=== PATIENT | male | born 1960 | race Caucasian/White ===

== ENCOUNTER 2018-04-14 17:28 | Inpatient (IN) | payer BC, OTHER ==
[~2018-04-14] VITALS: Ht 180.3 cm; Wt 93.0 kg
--- NOTE | 2018-04-14 17:53 | NUR ---
WILI COMPLETED. SBAR REPORT TO JESSIE RN, PT HAD MRSA-NARES ORDERED SENT. PT TO [facility] VIA W/C.
[2018-04-14] MEDS ORDERED: DIVA500T4 PO (17:56)
[2018-04-14] MEDS ORDERED: CALCIUM CARBONATE (17:56)
[2018-04-14] MEDS ORDERED: CLON0.1T PO (17:56)
[2018-04-14] MEDS ORDERED: AMLO5TAB4 PO (17:56)
[2018-04-14] MEDS ORDERED: VITAMIN D (17:56)
[2018-04-14] MEDS ORDERED: CLONAZEPAM 0.5 MG TABLET PO SCH (18:30)
[2018-04-14] MEDS ORDERED: MAG HYDROX/AL HYDROX/SIMETH 30 ML LIQUID UDC PO PRN (18:30)
[2018-04-14] MEDS ORDERED: MAGNESIUM HYDROXIDE 30 ML LIQUID UDC PO PRN (18:30)
[2018-04-14 18:33] VITALS: BP 122/71
[2018-04-14] MEDS ORDERED: CLONIDINE HCL 0.1 MG TABLET PO PRN (19:15)
[2018-04-14] MEDS: ZOLPIDEM 5 MG TABLET PO PRN (20:13)
[2018-04-14] MEDS: ACETAMINOPHEN 325 MG TABLET PO PRN (21:11)
[2018-04-14 21:36] VITALS: BP 129/67
--- NOTE | 2018-04-14 22:17 | NUR ---
Received pt to care, pt is pleasant walking around the unit, cooperative, A & O x 3, pt was offered a snack, pt accepted and ate 100%, pt showered, pt asked for something to help him sleep. Pt also req tylenol. Pt was given ambien 5mg and tylenol 650mg. At this time pt is asleep in his bed.
--- NOTE | 2018-04-15 06:26 | NUR ---
Pt is labile, confused, delusional stating that he is "queen darlyn thompson", pt is non-compliant, aggressive in tone and body language, pt requesting to smoke but instead designer/writer offered nicotine patch but pt stated that he did not use those and told designer/writer to "get out of here". Pt was pacing around his room and the hallways most of the night. Pt is a totally different personality than when designer/writer first arrived on shift. Pt is hyperverbal, belligerent, confused, restless.
[2018-04-15 08:00] VITALS: BP 130/74
[2018-04-15] MEDS: AMLODIPINE 5 MG TABLET PO SCH (08:27)
[2018-04-15] MEDS: NICOTINE 21 MG/24HR PATCH TD SCH (08:28)
[2018-04-15] MEDS: DIVALPROEX 500 MG TABLET.DR PO SCH ×3 (10:29→17:01)
[2018-04-15 10:30] LABS: BASOPHILS % (AUTO) 0.4 % (0.0-2.0); EOSINOPHILS # (AUTO) 0.1 K/uL (0.0-0.7); EOSINOPHILS % (AUTO) 1.5 % (0.0-7.0); HEMATOCRIT 43.2 % (36.7-47.1); HEMOGLOBIN 15.1 g/dL (12.5-16.3); LYMPHOCYTES # (AUTO) 1.6 K/uL (20.0-40.0); LYMPHOCYTES % (AUTO) 18.7 % (20.5-51.5); MEAN CORPUSCULAR HGB CONC 35 g/dL (32.5-36.3); MEAN CORPUSCULAR VOLUME 91.6 fL (73.0-96.2); MONOCYTES # (AUTO) 0.6 K/uL (2.0-10.0); MONOCYTES % (AUTO) 6.9 % (0.0-11.0); NEUTROPHILS # (AUTO) 6.1 K/uL (1.8-8.9); NEUTROPHILS % (AUTO) 72.5 % (38.5-71.5); PLATELET COUNT (AUTO) 204 K/uL (152-348); RED BLOOD CELL COUNT(AUTO) 4.72 MIL/uL (4.06-5.63); WHITE BLOOD COUNT (AUTO) 8.5 K/uL (3.6-10.2)
[2018-04-15 10:44] LABS: BILIRUBIN,TOTAL 0.5 mg/dL (0.2-1.0); CREATININE 0.9 mg/dL (0.6-1.3); MAGNESIUM 1.8 mg/dL (1.8-2.4); PHOSPHOROUS 4.6 mg/dL (2.5-4.9); POTASSIUM 4.1 mmol/L (3.5-5.1); TOTAL PROTEIN, SERUM 7.8 g/dL (6.4-8.2)
[2018-04-15 11:06] LABS: THYROID STIMULATING HORMONE 0.745 mIU/mL (0.358-3.740)
[2018-04-15 15:06] VITALS: BP 117/63
[2018-04-15 20:48] VITALS: BP 121/73
[2018-04-15] MEDS: OLANZAPINE ZYDIS 5 MG TAB.RAPDIS PO SCH (21:00)
[2018-04-16 07:30] VITALS: BP 127/75
[2018-04-16] MEDS: DIVALPROEX 500 MG TABLET.DR PO SCH ×3 (08:14→16:30)
[2018-04-16] MEDS: AMLODIPINE 5 MG TABLET PO SCH (08:14)
[2018-04-16] MEDS: NICOTINE 21 MG/24HR PATCH TD SCH (08:14)
--- NOTE | 2018-04-16 12:15 | NUR ---
Initial Discharge Plan: Patient is currently homeless and it is uncertain how long he has been homeless or if he has ever used usp support. Patient does have a contact who is his daughter, Vandana [[phone]], but it is unclear what the level of relationship is between her and patient. Patient has provided consent for medical social worker to contact her. amusement park worker contacted Vandana, however was only able to leave a voicemail. As of now, discharge plan is pending. amusement park worker will continue to collaborate with patient, patient's daughter, and attending MD on a safe and proper discharge.
[2018-04-16] MEDS ORDERED: diphenhydrAMINE 50 MG/1 ML VIAL IM STA (14:36)
[2018-04-16] MEDS ORDERED: HALOPERIDOL LACTATE 5 MG/1 ML VIAL IM STA (14:36)
[2018-04-16] MEDS ORDERED: LORAZEPAM 2 MG/1 ML VIAL IM STA (14:36)
--- NOTE | 2018-04-16 14:39 | NUR ---
UR Note: highway maintenance crew worker faxed UR clinicals for patient to employment case manager Azeb [phone:[phone] / FAX: [phone]] at [facility] as UR was due today, 04/16/2018.
[2018-04-16] MEDS ORDERED: OLANZAPINE ZYDIS 5 MG TAB.RAPDIS PO ONE (15:00)
--- NOTE | 2018-04-16 16:05 | NUR ---
Pt. refused Olanzapine dose @ 1500, when ask why pt stated "I don't take that one, let me see that one." Educated pt. the importance of adhering to regimen as prescribed by MD.Pt. insisted on not taking Olanzapine.
[2018-04-16 16:45] VITALS: BP 120/72
--- NOTE | 2018-04-16 17:07 | NUR ---
Pt. + for MRSA nares. Pt. promplty isolated. Relayed results to Dr. Pate, awaiting for orders.
[2018-04-16 20:00] VITALS: BP 118/67
[2018-04-16] MEDS: MUPIROCIN 2% OINT 22 GM TUBE NS SCH (20:41)
[2018-04-16] MEDS: OLANZAPINE ZYDIS 5 MG TAB.RAPDIS PO SCH (20:54)
[2018-04-17 07:30] VITALS: BP 107/65
[2018-04-17] MEDS: NICOTINE 21 MG/24HR PATCH TD SCH (08:53)
[2018-04-17] MEDS: DIVALPROEX 500 MG TABLET.DR PO SCH ×3 (08:53→17:04)
[2018-04-17] MEDS: AMLODIPINE 5 MG TABLET PO SCH (08:54)
[2018-04-17] MEDS: MUPIROCIN 2% OINT 22 GM TUBE NS SCH ×3 (08:55→20:27)
--- NOTE | 2018-04-17 09:36 | NUR ---
UR Note: latex foam worker followed up with foster care case manager, Azeb [ph: [phone]; fax: [phone]], at [facility] who states that patient is authorized (#[id number]) for another 3 days and the next review will be on 04/19/2108.
--- NOTE | 2018-04-17 10:10 | NUR ---
Discharge Planning: licensing worker received return phone call from patient's daughter, Maria D [[phone]], who states that her and patient do not have a relationship. Maria D states that she last spoke with patient in February. Apparently patient was living with a "manager social responsibility" for 7 years who would help him and make sure he took his medication. The "manager social responsibility" June 2017 and left the patient homeless. Per Maria D, the patient "spiraled" after the of his "manager social responsibility". Maria D does not know how much the patient has in terms of income and states that she will not be involved in his care. licensing worker will continue to work on a safe and proper discharge plan for patient.
[2018-04-17 17:28] VITALS: BP 121/53
[2018-04-17] MEDS: OLANZAPINE ZYDIS 5 MG TAB.RAPDIS PO SCH ×2 (20:19→20:26)
[2018-04-17 20:42] VITALS: BP 125/68
[2018-04-18 07:30] VITALS: BP 124/72
[2018-04-18] MEDS: NICOTINE 21 MG/24HR PATCH TD SCH (08:44)
[2018-04-18] MEDS: MUPIROCIN 2% OINT 22 GM TUBE NS SCH ×2 (08:49→20:15)
[2018-04-18] MEDS: AMLODIPINE 5 MG TABLET PO SCH (08:49)
[2018-04-18] MEDS: DIVALPROEX 500 MG TABLET.DR PO SCH ×3 (08:49→16:57)
[2018-04-18 15:16] VITALS: BP 105/65
--- NOTE | 2018-04-18 15:44 | NUR ---
Activity Group Note: Patients were asked to draw a picture of Fall and to join in discussion of what Fall means to them or any memories they may have of the Fall season. Subjective: "I don't really like Fall" [Patient made this statement when asked what he likes about Fall] Objective: Patient appeared to be engaged in drawing activity and to be enjoying himself. Patient was task-oriented and focused on completion of picture. Assessment: Patient needs encouragement and support in engaging with peers. Plan: Encourage group attendance as scheduled. textile pin worker will continue to provide encouragement and support in helping patient engage with peers and group activity.
[2018-04-18] MEDS: OLANZAPINE ZYDIS 5 MG TAB.RAPDIS PO SCH (20:15)
[2018-04-18 20:30] VITALS: BP 135/78
[2018-04-19 07:30] VITALS: BP 145/84
[2018-04-19] MEDS: DIVALPROEX 500 MG TABLET.DR PO SCH ×3 (08:41→17:23)
[2018-04-19] MEDS: MUPIROCIN 2% OINT 22 GM TUBE NS SCH ×2 (08:41→20:05)
[2018-04-19] MEDS: NICOTINE 21 MG/24HR PATCH TD SCH (08:41)
[2018-04-19] MEDS: AMLODIPINE 5 MG TABLET PO SCH (08:45)
--- NOTE | 2018-04-19 10:35 | NUR ---
UR Note: welfare eligibility worker faxed patient packet for utilization review due today to Azeb [ph: [phone]; fax: [phone]], at [facility] welfare eligibility worker also followed up with phone call to Azeb and left a voicemail informing her that social group worker will be leaving office at noon today and to provide all necessary information to social group worker, Cristy [[phone]]. Authorization (#[id number]).
[2018-04-19 15:51] VITALS: BP 125/68
[2018-04-19] MEDS: OLANZAPINE ZYDIS 5 MG TAB.RAPDIS PO SCH (20:05)
[2018-04-19 20:41] VITALS: BP 110/61
--- NOTE | 2018-04-19 22:10 | NUR ---
GPS: Pt.refused his bedtime meds.earlier despite explanation of risks vs.benefits x3. Paranoid and remains delusional. Refused to listen to re-direction from staff. Observed to be standing by the water fountain and playing with the water. Staff instructed pt.to go back to his room which he did but gave staff a nasty stare down. Also made a gesture of cutting his throat with his thumb. Pt.attempts to intimidate staff. Will continue to monitor behavior for further escalation. Safety checks continues.
[2018-04-20 07:30] VITALS: BP 132/76
[2018-04-20] MEDS: AMLODIPINE 5 MG TABLET PO SCH (09:00)
[2018-04-20] MEDS: NICOTINE 21 MG/24HR PATCH TD SCH (09:00)
[2018-04-20] MEDS: MUPIROCIN 2% OINT 22 GM TUBE NS SCH ×2 (09:00→20:51)
[2018-04-20] MEDS: DIVALPROEX 500 MG TABLET.DR PO SCH ×3 (09:00→17:50)
--- NOTE | 2018-04-20 09:13 | NUR ---
Ur Note: die set up worker received confirmation from Azeb [ph: [phone]; fax: [phone]], continuous pillowcase cutter at [facility] stating that patient is authorized for another 3 days with utilization review will be due on 04/23/2018. Authorization (#[id number]).
[2018-04-20] MEDS ORDERED: HALOPERIDOL 0.5 MG TABLET PO SCH (10:15)
[2018-04-20] MEDS ORDERED: HALOPERIDOL LACTATE 5 MG/1 ML VIAL IM PRN (10:15)
[2018-04-20] MEDS: HALOPERIDOL 5 MG TABLET PO SCH ×2 (12:45→17:50)
--- NOTE | 2018-04-20 12:58 | NUR ---
Firearms Report: orchard worker completed and submitted a [employer] firearms report for a 5250 GD certification.
[2018-04-20] MEDS: HALOPERIDOL LACTATE 5 MG/1 ML VIAL IM PRN (13:50)
--- NOTE | 2018-04-20 15:58 | NUR ---
Discharge Planning: plant maintenance worker received phone call from Vira Martinez [[phone]], case work aide, at [facility]. Vira would like to speak about offering case management services to patient. plant maintenance worker returned phone call and awaiting call back.
[2018-04-20 16:00] VITALS: BP 106/62
[2018-04-20] MEDS ORDERED: OLANZAPINE ZYDIS 5 MG TAB.RAPDIS PO SCH (17:00)
--- NOTE | 2018-04-20 17:52 | NUR ---
Gps/Cotton Ball Machine Tender- Cooperative this pm. had been pleasant compliant with his pm med. min.prompting. Noted patient had been quiet this pm, eating dinner in his room.
[2018-04-20 20:07] VITALS: BP 120/66
[2018-04-21 07:30] VITALS: BP 115/64
[2018-04-21] MEDS: HALOPERIDOL 5 MG TABLET PO SCH ×2 (08:08→16:32)
[2018-04-21] MEDS: AMLODIPINE 5 MG TABLET PO SCH (08:08)
[2018-04-21] MEDS: NICOTINE 21 MG/24HR PATCH TD SCH (08:08)
[2018-04-21] MEDS: DIVALPROEX 500 MG TABLET.DR PO SCH ×3 (08:08→16:32)
[2018-04-21] MEDS: ACETAMINOPHEN 325 MG TABLET PO PRN (08:12)
[2018-04-21] MEDS: MUPIROCIN 2% OINT 22 GM TUBE NS SCH ×2 (08:13→20:37)
[2018-04-21 15:42] VITALS: BP 134/70
--- NOTE | 2018-04-21 17:45 | NUR ---
Gps/Cpc- Had been cooperative, redirectable, compliance with his routine medications, wears facial mask when he walks around the unit. No labile or agitated mood noted. Had been pleasant with the staff providing his care.
[2018-04-21 19:30] VITALS: BP 123/60
--- NOTE | 2018-04-22 06:57 | NUR ---
Pt was responding to internal stimuli last night for about 2 hours just before 2am. Director Global Strategic Publisher Sales offered pt something to help him sleep but pt refused. Pt later went to sleep and slept the rest of the night. Pt observed this AM walking the halls for about 1 hour, back and forth, it appeared the pt was restless or exercising. Pt had on his mask, pt was quiet just walking.
[2018-04-22 07:30] VITALS: BP 142/72
[2018-04-22] MEDS: DIVALPROEX 500 MG TABLET.DR PO SCH ×3 (08:35→16:32)
[2018-04-22] MEDS: HALOPERIDOL 5 MG TABLET PO SCH ×2 (08:35→16:32)
[2018-04-22] MEDS: MUPIROCIN 2% OINT 22 GM TUBE NS SCH ×2 (08:35→20:58)
[2018-04-22] MEDS: AMLODIPINE 5 MG TABLET PO SCH (08:36)
[2018-04-22] MEDS: NICOTINE 21 MG/24HR PATCH TD SCH (08:36)
[2018-04-22 16:00] VITALS: BP 129/72
[2018-04-22 20:18] VITALS: BP 125/76
[2018-04-22] MEDS: ZOLPIDEM 5 MG TABLET PO PRN (23:03)
[2018-04-22] MEDS: ACETAMINOPHEN 325 MG TABLET PO PRN (23:03)
[2018-04-23 07:30] VITALS: BP 134/81
[2018-04-23] MEDS: NICOTINE 21 MG/24HR PATCH TD SCH (09:00)
[2018-04-23] MEDS: DIVALPROEX 500 MG TABLET.DR PO SCH ×3 (09:35→17:41)
[2018-04-23] MEDS: HALOPERIDOL 5 MG TABLET PO SCH ×2 (09:35→17:41)
[2018-04-23] MEDS: AMLODIPINE 5 MG TABLET PO SCH (09:36)
[2018-04-23] MEDS: MUPIROCIN 2% OINT 22 GM TUBE NS SCH (09:37)
--- NOTE | 2018-04-23 10:41 | NUR ---
Ur Note: metal worker received confirmation from Azeb [ph: [phone]; fax: [phone]], case worker at [facility] stating that patient is authorized for another 3 days with utilization review will be due on 04/25/2018. Authorization (#[id number]). Azeb also provided adoption social worker with information about where patient was last discharged to, which was [facility] [[phone]]. Azeb suggested calling them to obtain possible financial information which would help in Board and Care placement. metal worker will call them to inquire about patient financial situation.
[2018-04-23 15:10] VITALS: BP 125/72
--- NOTE | 2018-04-23 15:38 | NUR ---
Discharge Planning Note: curb worker called [facility] [[phone]], which was suggested by insurance company (see previous UR note). curb worker was told by [facility] facility to contact Argelia [[phone]], general office associate for [facility]. curb worker left Argelia a voicemail and will await callback.
--- NOTE | 2018-04-23 15:50 | NUR ---
Discharge Planning Note: technicians and trades workers received callback from Argelia [[phone]], automotive general sales manager for [facility], at [facility]. Per Argelia, she states patient was only at facility for 1-2 days and that not much information as able to be collected. She further states that patient had no ID or debit cards on him. Patient only stated he banked with "[employer]" and that his daughter Dhaval [[phone]] was his payee and she puts money in his account every month. When social insurance specialist asked patient about this, he confirmed that Dhaval is his "payee". technicians and trades workers has spoken with Dhaval regarding patient last week, who states that she has no contact with patient and does not know anything about his financial status. technicians and trades workers reached out to Dhaval again today to inquire about patient stating she was the payee. technicians and trades workers left voicemail and awaiting callback.
[2018-04-23 20:00] VITALS: BP 130/70
[2018-04-24] MEDS: ZOLPIDEM 5 MG TABLET PO PRN (01:04)
[2018-04-24 07:30] VITALS: BP 111/67
[2018-04-24] MEDS: DIVALPROEX 500 MG TABLET.DR PO SCH ×3 (08:42→17:35)
[2018-04-24] MEDS: AMLODIPINE 5 MG TABLET PO SCH (08:42)
[2018-04-24] MEDS: NICOTINE 21 MG/24HR PATCH TD SCH (08:47)
[2018-04-24] MEDS ORDERED: HALOPERIDOL LACTATE 10 MG/5 ML ORAL SOLUTION UDC PO SCH (09:00)
[2018-04-24] MEDS: HALOPERIDOL 2 MG TABLET PO SCH ×2 (09:20→17:36)
--- NOTE | 2018-04-24 10:48 | NUR ---
Discharge Planning: printing worker supervisor attempted to call patient's daughter, Dhaval [[phone]], in regard to patient claim that she is his payee. printing worker supervisor made two attempts both with no answer. printing worker supervisor unable to leave a voicemail due to mailbox being full. printing worker supervisor will continue to call Dhaval. With patient unable to access finances (i.e. patient has no ID or debit cards and does not know where he cates), a board and care is not an option for discharge. printing worker supervisor reached out to complex case manager, Azeb [[phone]], at [facility] to see if she could provide any other placement options for discharge other than senior living placement. printing worker supervisor awaiting call back from Azeb.
[2018-04-24 15:41] VITALS: BP 114/61
--- NOTE | 2018-04-24 16:01 | NUR ---
Discharge Planning: community mental health social worker and social human services assistants, Lainey Juarez, met with patient to discuss finances and patient's daughter being patient's payee. Per patient, his daughter Dhaval [[phone]] opened an account in patient's name with [employer] in which Dhaval is also listed on account. Patient joshua stated that daughter puts money in his account every month. However, patient has been unable to access account due to stolen bank and ID cards. Furthermore, patient daughter unable to be reached. In view of sober livings report that daughter is payee and since she is not returning calls made by this director of social work, an APS report [#[id number]] was filed. Patient will be provided with local social security and DMV office to try and obtain his IDs.
[2018-04-24 19:30] VITALS: BP 105/56
[2018-04-25 07:29] LABS: BASOPHILS % (AUTO) 0.2 % (0.0-2.0); EOSINOPHILS # (AUTO) 0.1 K/uL (0.0-0.7); EOSINOPHILS % (AUTO) 2.4 % (0.0-7.0); HEMOGLOBIN 15.3 g/dL (12.5-16.3); LYMPHOCYTES # (AUTO) 1.8 K/uL (20.0-40.0); LYMPHOCYTES % (AUTO) 31.3 % (20.5-51.5); MEAN CORPUSCULAR HEMOGLOBIN 31.2 uug (23.8-33.4); MEAN CORPUSCULAR HGB CONC 34 g/dL (32.5-36.3); MONOCYTES # (AUTO) 0.5 K/uL (2.0-10.0); MONOCYTES % (AUTO) 8.9 % (0.0-11.0); NEUTROPHILS # (AUTO) 3.3 K/uL (1.8-8.9); NEUTROPHILS % (AUTO) 57.2 % (38.5-71.5); PLATELET COUNT (AUTO) 172 K/uL (152-348); RED BLOOD CELL COUNT(AUTO) 4.89 MIL/uL (4.06-5.63); WHITE BLOOD COUNT (AUTO) 5.7 K/uL (3.6-10.2)
[2018-04-25 07:49] LABS: BILIRUBIN,TOTAL 0.4 mg/dL (0.2-1.0); CREATININE 0.7 mg/dL (0.6-1.3); MAGNESIUM 1.7 mg/dL (1.8-2.4); PHOSPHOROUS 3.3 mg/dL (2.5-4.9); POTASSIUM 4.3 mmol/L (3.5-5.1); TOTAL PROTEIN, SERUM 7.3 g/dL (6.4-8.2)
[2018-04-25 08:30] VITALS: BP 110/68
[2018-04-25] MEDS: NICOTINE 21 MG/24HR PATCH TD SCH ×2 (09:00→09:21)
[2018-04-25] MEDS: HALOPERIDOL 2 MG TABLET PO SCH ×2 (09:00→17:00)
[2018-04-25] MEDS: DIVALPROEX 500 MG TABLET.DR PO SCH ×3 (09:19→17:23)
[2018-04-25] MEDS: AMLODIPINE 5 MG TABLET PO SCH (09:21)
--- NOTE | 2018-04-25 10:56 | NUR ---
UR Note: service worker called and spoke with Azeb [ph: [phone]; fax: [phone]], caseworker intake at [facility] providing her with utilization review that was due today, 04/25/2018. Patient will not be authorized any more days and will be discharged tomorrow to a care home. Soical worker will continue to work on case and provide support and a safe discharge to patient. Authorization (#[id number]).
[2018-04-25] MEDS ORDERED: HALOPERIDOL DECANOATE 50 MG/1 ML AMPUL IM ONE (14:45)
[2018-04-25] MEDS ORDERED: MAGNESIUM OXIDE 400 MG TABLET PO ONE (15:30)
[2018-04-25] MEDS: HALOPERIDOL LACTATE 5 MG/1 ML VIAL IM PRN (15:48)
[2018-04-25 16:20] VITALS: BP 118/64
--- NOTE | 2018-04-25 16:20 | NUR ---
Activity Group Note: Patients engaged in listening to music of their choice while coloring a picture print available to them. Patients were asked to engage with their peers to discuss the music or their pictures. Subjective: "I love rock and roll...what do you like to listen to?" Objective: Patient fully participated in the group. Patient initiated conversation with his peers. Patient seemed pleasant and calm. Patient sang along to many of the songs. Patient attended the group the entire session. Assessment: Patient needs support in an outpatient setting to encourage therapeutic coping skills and socialization. Plan: Encourage group attendance as scheduled. Medical Secretary Receptionist will continue to provide encouragement and support in helping the patient engage in group activities.
--- NOTE | 2018-04-25 17:26 | NUR ---
the pharmacy is out of stock of haldol informed charge nurse and pt has received haldol deconate 5mg im times 1 as ordered at 15 55 today no behavior problems
--- NOTE | 2018-04-25 18:37 | NUR ---
mag oxide 400mg given for mg level 1.7 and patient rec d haldol deconate 5mg given pt still with facial mask for mrsa status , pt was shaved and no behavior problems
[2018-04-25 21:44] VITALS: BP 136/73
[2018-04-26 07:30] VITALS: BP 113/60
[2018-04-26] MEDS ORDERED: HALOPERIDOL 5 MG TABLET PO SCH (09:00)
[2018-04-26] MEDS: NICOTINE 21 MG/24HR PATCH TD SCH (09:00)
[2018-04-26 09:25] VITALS: BP 113/60
[2018-04-26] MEDS: AMLODIPINE 5 MG TABLET PO SCH (09:25)
[2018-04-26] MEDS: DIVALPROEX 500 MG TABLET.DR PO SCH ×2 (09:25→12:52)
--- NOTE | 2018-04-26 10:59 | NUR ---
Discharge Note: Patient has elected to discharge to [facility] [[address] [place] [address]] and transportation will be provided by taxi at 2:30 and no later. Patient was provide with a taxi voucher. wood processing worker has spoken with patient informing him of discharge and he is aware and agreeable with the plan. Patient is alert and oriented x3, denies any SI/HI., and is able to plan for self-care. Patient currently does not have a PCP or psychiatrist, but was provided with the Homeless Resources & Referrals packet which includes a list of medical resources for low income, emergency shelters, housing resources, drop in centers, and showers/hot meals centers. wood processing worker spoke with Azeb [[phone]], telephonic nurse case manager at [facility], who did not provide patient with outpatient follow-ups. Patient was given outpatient mental health resources [facility] , [facility] Oak[facility] , and the [place] [facility] . Patient was also provided with local DMV [[address]; [place] [address]; ] and Social Security office [[address] [place] [address]; Hours: Closes at 4PM; ] to get his ID and social security card. wood processing worker also received a phone call from APS supervisor irrigation, Saritha [[phone]], stating that she received APS report [#[id number]] and requesting discharge location of patient. wood processing worker provided Saritha with location of patient discharge. He has completed and signed the homeless patient waiver form.
--- NOTE | 2018-04-26 14:02 | NUR ---
Gps/Ice Cutter-Discharged planning in progress. Reviewed prescriptions /medications, diet,safety, skin care , follow up with his Medical Doctors and Psychiatrist as recommended, patient verbalized understanding. All belongings given back to patient. Denies SI/HI.Patient in good spirit with no new c/o offered, will be discharged to home via taxi(voucher)
--- NOTE | 2018-04-26 14:12 | NUR ---
Gps/Commutator V Ring Assembler- Patient verbalized understanding of all educations, and discharge instructions.All belongings given back to patient.
== END 2018-04-26 14:45 | disposition home or self-care (01) | DRG 885 ==
LOC: ER 17:31 → GPS 17:51
PROVIDERS: ADMIT Psychiatry & Neurology Psychiatry; ATTEND Internal Medicine
DX: F25.0 Schizoaffective disorder, bipolar type (principal); F01.50 Vascular dementia, unspecified severity, without behavioral disturbance, psychotic disturbance, mood disturbance, and anxiety; Z88.0 Allergy status to penicillin; Z59.0 Homelessness; F17.210 Nicotine dependence, cigarettes, uncomplicated; E66.9 Obesity, unspecified; Z71.3 Dietary counseling and surveillance; F09 Unspecified mental disorder due to known physiological condition; M51.16 Intervertebral disc disorders with radiculopathy, lumbar region; M19.90 Unspecified osteoarthritis, unspecified site; R73.03 Prediabetes; E83.42 Hypomagnesemia; I10 Essential (primary) hypertension; Z91.19 Patient's noncompliance with other medical treatment and regimen; Z68.29 Body mass index [BMI] 29.0-29.9, adult; K21.9 Gastro-esophageal reflux disease without esophagitis; F41.9 Anxiety disorder, unspecified
CPT/HCPCS: 36415; 80164; 83735; 84100; 84443; 85025; A4663; J1630; J1631